=== PATIENT | female | born 1970 | race Caucasian/White ===

== ENCOUNTER 2018-08-26 20:27 | Emergency (ER) | payer OTHER ==
[~2018-08-26] VITALS: Ht 160 cm; Wt 58.6 kg
[2018-08-26 20:43] VITALS: BP 100/75; Ht 160 cm; Wt 58.6 kg
== END 2018-08-26 21:40 | disposition home or self-care (01) ==
LOC: ED 20:27
DX: H66.91 Otitis media, unspecified, right ear (principal); Z98.890 Other specified postprocedural states

== ENCOUNTER 2019-03-28 20:48 | Emergency (ER) | payer OTHER ==
[~2019-03-28] VITALS: Ht 160 cm; Wt 55.8 kg
[2019-03-28 20:59] VITALS: Ht 160 cm; Wt 55.8 kg
[2019-03-29 00:34] VITALS: BP 118/72
== END 2019-03-29 01:53 | disposition home or self-care (01) ==
LOC: ED 20:48
DX: H66.91 Otitis media, unspecified, right ear (principal); J02.9 Acute pharyngitis, unspecified; Z98.890 Other specified postprocedural states
CPT/HCPCS: 87804